=== PATIENT | female | born 1970 | race Caucasian/White ===

== ENCOUNTER 2019-06-30 00:08 | Inpatient (IN) | payer OTHER ==
[~2019-06-30] VITALS: Ht 162.5 cm; Wt 93.6 kg
[2019-06-30] VITALS (7 sets, daily range): BP systolic 110–176; BP diastolic 55–88
--- NOTE | ~2019-06-30 | EKG ---
[place], [place] ELECTROCARDIOGRAM REPORT NAME: BLESSING BEAR UNIT #: [id number] ROOM: 426 DOCTOR: SLICK DRAFT REPORT BIRTHDATE: [birth year] [facility] Test Date: 2019-06-30 Test Time: 06:30:36 Pat Name: BLESSING BEAR Department: Room: 426 Gender: F Monorail Hooker: : 1970 Requested By: DAVID OJEDA Order Number: [id number] Reading MD: Javier Monahan MD Measurements Intervals [place] Rate: 75 P: 68 [place]: 157 QRS: 48 QRSD: 93 T: 27 QT: 399 QTc: 446 Interpretive Statements Sinus rhythm Low voltage, precordial leads No previous ECG available for comparison Electronically Signed On 07-02-2019 6:35:47 PST by Javier Monahan MD CM:EKGRPT:ELECTROCARDIOGRAM REPORT DAVID MILLER DRAFT REPORT DAVID OJEDA DO
--- NOTE | ~2019-06-30 | ST ---
[place], [place] EXERCISE STRESS TEST REPORT [id number] UNIT #: [id number] ROOM: 426 DOCTOR: MARY BETH MOHAN MD BIRTHDATE: [birth year] DOS: 06/30/2019 LEXISCAN STRESS EKG REFERRING PHYSICIAN: Dr. Robins. INDICATION: Chest pain. The patient underwent a standard protocol Lexiscan stress EKG. The patient baseline EKG showed normal sinus, nonspecific ST-T wave changes. The patient's heart rate was 73, blood pressure 116/70. The patient's peak heart rate 116 with a blood pressure of 104/64. The patient had no chest pain, no ischemic changes, no arrhythmias. SUMMARY OF FINDINGS: Unremarkable Lexiscan stress EKG. Please see separate report for perfusion results. MARY BETH MOHAN MD CM:STRESS:EXERCISE STRESS TEST REPORT [id number] MARY BETH MOHAN MD
--- NOTE | ~2019-06-30 | EKG ---
[place], [place] ELECTROCARDIOGRAM REPORT NAME: BLESSING BEAR UNIT #: [id number] ROOM: 426 DOCTOR: SLICK DRAFT REPORT BIRTHDATE: [birth year] [facility] Test Date: 2019-06-30 Test Time: 00:15:21 Pat Name: BLESSING BEAR Department: Room: 426 Gender: F Regional Director: Jens Liang : 1970 Requested By: DAVID OJEDA Order Number: [id number] Reading MD: Javier Monahan MD Measurements Intervals [place] Rate: 82 P: 68 [place]: 155 QRS: 56 QRSD: 96 T: -2 QT: 389 QTc: 455 Interpretive Statements Sinus rhythm Borderline T abnormalities, inferior leads Electronically Signed On 07-02-2019 6:35:35 PST by Javier Monahan MD CM:EKGRPT:ELECTROCARDIOGRAM REPORT [id number] DAVID MILLER DRAFT REPORT DAVID OJEDA DO
--- NOTE | ~2019-06-30 | EKG ---
[place], [place] ELECTROCARDIOGRAM REPORT NAME: BLESSING BEAR UNIT #: [id number] ROOM: 426 DOCTOR: SLICK DRAFT REPORT BIRTHDATE: [birth year] [facility] Test Date: 2019-06-30 Test Time: 03:34:50 Pat Name: BLESSING BEAR Department: Room: 426 Gender: F Modeling Agent: Jens Liang : 1970 Requested By: DAVID OJEDA Order Number: [id number] Reading MD: Javier Monahan MD Measurements Intervals [place] Rate: 72 P: 64 [place]: 158 QRS: 59 QRSD: 94 T: 24 QT: 412 QTc: 451 Interpretive Statements Sinus rhythm Baseline wander in lead(s) V3 Electronically Signed On 07-02-2019 6:35:41 PST by Javier Monahan MD CM:EKGRPT:ELECTROCARDIOGRAM REPORT [id number] DAVID MILLER DRAFT REPORT DAVID OJEDA DO
[~2019-06-30 00:08] MED LIST: BACTRIM DS 8001 TAB PO
[2019-06-30 00:35] LABS: BASO # 0.1 10*3/uL (0.0-0.1); BASO % 0.8 % (0.0-1.0); EOS # 0.3 10*3/uL (0.0-0.4); EOS % 3.9 % (1.0-4.0); HEMATOCRIT 33.1 % (37.0-47.0); HEMOGLOBIN 9.6 g/dl (12.0-16.0); LYMPH # 1.8 10*3/uL (1.3-4.4); LYMPH % 21.7 % (27.0-41.0); MEAN CELL VOLUME 66.2 fl (81.0-99.0); MEAN CORPUSCULAR HGB 19.2 pg (27.0-31.0); MEAN PLATELET VOLUME 9.9 fl (9.6-12.3); MONO # 0.7 10*3/uL (0.1-1.0); MONO % 8.8 % (3.0-9.0); NEUT # 5.4 10*3/uL (2.3-7.9); NEUT % 64.3 % (47.0-73.0); PLATELET COUNT AUTOMATED 377 10*3/uL (130-400); RED CELL DISTRI WIDTH 20.2 % (0-14.5); WHITE BLOOD COUNT 8.4 10*3/uL (4.8-10.8)
[2019-06-30 00:45] LABS: ACT PARTIAL THROMBO TIME 24.3 SECONDS (20.0-32.1); INTERNATIONAL NORM RATIO 0.9 (2.0-3.5)
[2019-06-30 00:56] LABS: ALBUMIN 3.2 gm/dl (3.1-4.5); ALKALINE PHOSPHATASE 92 U/L (45-117); BUN 16 mg/dl (7-24); CHLORIDE 106 mmol/L (98-107); CREATININE 0.88 mg/dL (0.55-1.02); POTASSIUM 4.2 mmol/L (3.5-5.1); SGOT/AST 11 IU/L (3-35); SGPT/ALT 18 U/L (12-78); SODIUM 138 mmol/L (136-145); TOTAL PROTEIN 6.8 gm/dL (6.4-8.2)
[2019-06-30 00:58] LABS: TROPONIN I 0.308 ng/ml (<0.045)
--- NOTE | 2019-06-30 02:20 | NUR ---
A 49, admitted to , under the services of CORAL Vega DO with a diagnosis of ELEVATED TROPONIN CHEST PAIN. Chief complaint is CHEST PAIN. [place] from [place]. Monitor applied. Initial assessment completed. Vital signs taken and recorded. CORAL VEGA DO notified of admission to the unit. Orders received. See assessment for past medical history, medications and allergies. Patient and/or family oriented to unit. [facility]. Clothing/patient valuable form completed. ANTONINA ESPINAL
--- NOTE | 2019-06-30 02:21 | NUR ---
DR. STRANGE NOTIFIED OF COMPLETED MED REC.
--- NOTE | 2019-06-30 03:24 | NUR ---
INFORMED DR STRANGE OF CRITICAL TROPONIN LEVEL OF 0.332 STATED OK.
--- NOTE | 2019-06-30 03:31 | NUR ---
ANSWERING SERVICE WAS NOTIFIED OF DR. NAYAN WINN. MESSAGE LEFT ON ANSWERING MACHINE. ANTONINA ESPINAL
--- NOTE | 2019-06-30 03:44 | NUR ---
SLEEPING. RESP ERND. CALL LIGHT WITHIN REACH
[2019-06-30 06:09] LABS: BASO # 0.1 10*3/uL (0.0-0.1); BASO % 0.9 % (0.0-1.0); EOS # 0.3 10*3/uL (0.0-0.4); EOS % 4.7 % (1.0-4.0); HEMATOCRIT 32.6 % (37.0-47.0); LYMPH # 2.4 10*3/uL (1.3-4.4); LYMPH % 35.8 % (27.0-41.0); MEAN CORPUSCULAR HGB 18.2 pg (27.0-31.0); MEAN CORPUSCULAR HGB CONC 27.6 g/dl (33.0-37.0); MEAN PLATELET VOLUME 9.4 fl (9.6-12.3); MONO # 0.6 10*3/uL (0.1-1.0); MONO % 8.4 % (3.0-9.0); NEUT # 3.4 10*3/uL (2.3-7.9); NEUT % 49.8 % (47.0-73.0); PLATELET COUNT AUTOMATED 333 10*3/uL (130-400); RED BLOOD COUNT 4.94 10*6/uL (4.10-5.10); RED CELL DISTRI WIDTH 19.9 % (0-14.5); WHITE BLOOD COUNT 6.8 10*3/uL (4.8-10.8)
[2019-06-30 06:27] LABS: BUN 14 mg/dl (7-24); CHLORIDE 109 mmol/L (98-107); CHOLESTEROL 197 mg/dL (<200); CREATININE 0.71 mg/dL (0.55-1.02); HDL CHOLESTEROL 38 mg/dl (40-60); LDL CHOLESTEROL 125 mg/dL (9-159); PHOSPHOROUS 3.2 mg/dL (2.5-4.9); POTASSIUM 4.3 mmol/L (3.5-5.1); SODIUM 139 mmol/L (136-145); TRIGLYCERIDES 171 mg/dl (<150); VLDL CHOLESTEROL 34 mg/dL (6-40)
--- NOTE | 2019-06-30 06:38 | NUR ---
UPDATED DR STRANGE ABOUT THE CRITICAL LAB VALUE FOR THE PATIENT.
--- NOTE | 2019-06-30 08:32 | NUR ---
Ann Karimi in and examined pt. Discussed plan of time.
--- NOTE | 2019-06-30 09:00 | NUR ---
Psychologist Chief in to talk to patient. Patient states lives at home with . There are few steps in the home. Physician: none Pharmacy: [facility] Home health services: none Patient's level of ADLs: INDEPENDENT Patient has working utilities: all working DME: none Follow-up physician's appointment after d/c: will be mde by [facility] nurse director upon discharge Does patient want to access PORTAL?: no Discharge plan discussed with patient, present, she lives at home with , she is independent in adls and ambulation, works, drives, she states she will return home when medically stable and denies any home needs. BINA BARRERA
--- NOTE | 2019-06-30 11:46 | NUR ---
INFORMED SIGNED CONSENT OBTAINED FOR LEXISCAN STRESS TEST WITH DR MOHAN. RESTING EKG NSR HR 73 BP 116/70. PULSE OX 99% LUNGS CLEAR. PT COMPLETED ONE MINUTE OF A LEXISCAN STRESS TEST WITH PT RECEIVING LEXISCAN 0.4MG IV OVER 10 SECONDS. NO ARRHYTHMIAS OR ST CHANGES NOTED. PT C/O A ODD FEELING AND SOB WITH INJECTION. LAST RECOVERY HR OF 99 BP 114/66. PT IN STABLE CONDITION, AWAITING NUCLEAR IMAGES.
--- NOTE | 2019-06-30 12:55 | NUR ---
Pt returned from having stress test. New meds given and reviewed with pt.
--- NOTE | 2019-06-30 16:23 | NUR ---
Spoke with Ann Cueto WIRE INSULATOR regarding signed stress test report for pt. States she will keep pt over night due to new medications started to see how pt responds. Notified pt of this.
--- NOTE | 2019-06-30 20:00 | NUR ---
Patient resting quietly with no c/o discomfort. Respirations easy and regular. Vital signs stable. No overt distress. ANTONINA ESPINAL
[2019-07-01] VITALS: BP 108/56
--- NOTE | 2019-07-01 01:22 | NUR ---
24 HR chart check completed.
[2019-07-01 02:56] VITALS: BP 88/44
--- NOTE | 2019-07-01 04:00 | NUR ---
SLEEPING, EYES CLOSED. NO DISTRESS NOTED. CALL LIGHT WITHIN REACH
[2019-07-01 08:00] VITALS: BP 130/84
[2019-07-01] MEDS ORDERED: ATORVASTATIN CA40 M1 PO (08:30)
[2019-07-01] MEDS ORDERED: METOPROLOL SUCC25 M2 PO (08:30)
[2019-07-01] MEDS ORDERED: ASPIRIN ADULT L81 M2 PO (08:30)
--- NOTE | 2019-07-01 10:00 | NUR ---
PT DISCHARGED AT THIS TIME. IV REMOVED AND PRESSURE DRESSING APPLIED. HEART MONITOR RETURNED TO FLOOR. VERBALIZED UNDERSTANDING OF DISCHARGE INSTRUCTIONS.
== END 2019-07-01 10:00 | disposition home or self-care (01) | DRG 392 ==
LOC: ED 00:08 → 4E 01:42 → EDHOLD 01:42 → 4E 01:49
PROVIDERS: Emergency Medicine; Student in an Organized Health Care Education/Training Program; ADMIT Emergency Medicine
PROC: 4A02XM4 Measurement of Cardiac Total Activity, External Approach (ICD-10-PCS; principal; 2019-06-30)
PROC: 3E073KZ Introduction of Other Diagnostic Substance into Coronary Artery, Percutaneous Approach (ICD-10-PCS; 2019-06-30)
DX: K21.9 Gastro-esophageal reflux disease without esophagitis (principal); D50.9 Iron deficiency anemia, unspecified; E66.9 Obesity, unspecified; E78.00 Pure hypercholesterolemia, unspecified; E87.8 Other disorders of electrolyte and fluid balance, not elsewhere classified; Z71.6 Tobacco abuse counseling; Z82.49 Family history of ischemic heart disease and other diseases of the circulatory system; Z87.440 Personal history of urinary (tract) infections; Z87.891 Personal history of nicotine dependence; Z68.35 Body mass index [BMI] 35.0-35.9, adult

== ENCOUNTER 2025-01-27 16:37 | Emergency (ER) | payer OTHER ==
[~2025-01-27] VITALS: Ht 162.5 cm; Wt 104.3 kg
[~2025-01-27 16:37] MED LIST changes: +ASPIRIN ADULT L81 M2 PO; +ATORVASTATIN CA40 M1 PO; +METOPROLOL SUCC25 M2 PO
[2025-01-27] MEDS ORDERED: SODIUM CHLORIDE 0.9% 1,000 ML IV ONE (18:50)
[2025-01-27] MEDS ORDERED: Ondansetron Hydrochloride 4 MG/2 ML VIAL IV ONE (18:50)
== END 2025-01-27 20:37 | disposition home or self-care (01) ==
LOC: ED 16:37
DX: S69.82XA Other specified injuries of left wrist, hand and finger(s), initial encounter (principal); E66.9 Obesity, unspecified; Z79.82 Long term (current) use of aspirin; Z79.899 Other long term (current) drug therapy; Z68.39 Body mass index [BMI] 39.0-39.9, adult; W46.0XXA Contact with hypodermic needle, initial encounter; Y93.89 Activity, other specified; Y92.89 Other specified places as the place of occurrence of the external cause; Y99.8 Other external cause status